=== PATIENT | female | born 1965 | race Caucasian/White ===

== ENCOUNTER 2020-11-19 21:55 | Emergency (ER) | payer OTHER, SELFPAY ==
[2020-11-19 21:56] VITALS: BP 169/85; PULSE 102; RESP 18; TEMP 37.7; O2SAT 96; BMI 33.6
--- NOTE | 2020-11-19 22:24 | EDS_ITS ---
HPI History of Present Illness Chief Complaint: General Illness Informant: patient Narrative Narrative: Patient is a 55-year-old female with history of hypertension presenting with cough, fever, myalgias and concern for Covid. Patient states that she started having symptoms on Saturday, 5 days ago. She states her granddaughter test positive for Covid and she been around her. She notes she was started to feel better but then had recurrent fevers and is continued to have a cough. She denies any chest pain. She uses her 's albuterol nebulizer which does seem to help. She is complaining of low back pain as well as diffuse back pain. She states she has a hard time laying down or sleeping because she so uncomfortable. She has not had a Covid vaccine. She has had some associated nausea. She denies any urinary symptoms. Her fevers been as high as 101.5. She did take an antipyretic before coming into the emergency room. [facility] Medical History (Updated 11/19/20 @ 23:[address] Libra Acosta DO) HTN (hypertension) Home Medications albuterol sulfate [Ventolin HFA] 1 - 2 puff INHALATION Q4H PRN PRN #1 inh [Rx Last Taken Unknown] amlodipine 10 mg PO DAILY 11/19/20 [History Last Taken Unknown] Allergy/AdvReac Type Severity Reaction Status Date / Time prochlorperazine Allergy Other Verified 11/19/20 21:58 [From Compazine] Surgical History (Updated 11/19/20 @ 22:46 by Radha Louie) H/O: hysterectomy Social History Smoking Status: Never smoker [facility] ED Constitutional Constitutional ED: Reports chills and fever(s) Eyes Eyes: Reports change in vision ENT ENT ED: Denies rhinorrhea or sore throat Cardiovascular Cardiovascular: Denies chest pain or palpitations Respiratory/Chest Respiratory/Chest: Reports cough and dyspnea; Denies dyspnea on exertion or sputum Gastrointestinal Gastrointestinal: Reports nausea; Denies abdominal pain, diarrhea or vomiting Genitourinary Genitourinary ED: Denies dysuria or hematuria Musculoskeletal Musculoskeletal: Reports back pain, myalgias and neck pain Integumentary Denies rash Neurologic Neurologic: Denies headache(s) or weakness Psychiatric Psychiatric: Denies depression EXAM Physical Exam Const Vital Signs: 11/19/20 21:56 11/19/20 22:46 Temperature 99.8 F H Temperature Source Temporal Pulse Rate 102 H Respiratory Rate 18 Respiratory Effort Normal Non-Labored Respiratory Pattern Normal Blood Pressure 169/85 H Blood Pressure Mean 113 Pulse Ox 96 Oxygen Delivery Method Room Air Positive well nourished, well developed and obese General Appearance ED: well developed Nutritional Appearance: obese HEENT Reports moist mucous membranes Negative for tenderness Eyes PERRL and EOMs intact bilaterally Neck no lymphadenopathy, supple and no meningeal signs Resp normal respiratory effort and clear to auscultation bilaterally Resp Narrative: Mild bronchial breath sounds, no crackles or wheezing appreciated. Auscultation: Negative for wheezes or diminished lung sounds Cardio regular rate, regular rhythm and no murmurs GI normal to inspection, nondistended, normoactive bowel sounds and non-tender Palpation: soft Back/Spine no CVA tenderness Cervical Spine: Negative for cervical spine tenderness Thoracic Spine / Upper Back: Negative for thoracic spinal tenderness Lumbar Spine / Lower Back: Negative for lumbar spinal tenderness Extremity normal to inspection General Extremety ED: Negative for edema or tenderness General Extremity: Negative for edema Neuro oriented x3 and CN's II-XII intact bilaterally Sensorium / Orientation: alert Psych mental status grossly normal Skin no rashes or lesions noted and no wounds MDM MDM MDM Narrative Medical decision making narrative: Patient evaluated for Covid-like symptoms for the past week. She is mildly tachycardic with a low-grade temperature. She is hypertensive but notes that she did not take her blood pressure medication today. She is otherwise well-appearing. She is having some mild urinary symptoms I did check a urinalysis. She is not having ketones or findings consistent with acute infection. Covid test is positive. Due to patient's BMI and history of hypertension she is a candidate for monoclonal antibody treatment. She is c ounseled on this and given outpatient follow-up and encouragement to get the infusion. She is counseled return precautions. She verbalizes agreement and understanding with this plan. Lab Data Attestation: I reviewed the patient's lab results. Labs: Laboratory Results - last 24 hr 11/19/20 22:59 Urine Color Yellow Urine Clarity Sl. Cloudy Urine pH 7.0 Ur Specific [place] 1.010 Urine Protein 15 H Urine Glucose (UA) Normal Urine Ketones Negative Urine Occult Blood Negative Urine Nitrite Negative Urine Bilirubin Negative Urine Urobilinogen Normal Ur Leukocyte Esterase Negative Urine RBC 0 SEEN Urine WBC 0-5 SEEN Ur Squamous Epith Cells 0-5 SEEN Amorphous Sediment 1+ PHOS Urine Bacteria RARE Urine Mucus 0 SEEN Radiography Chest X-Ray - ED: 1 View, Read by ED Physician, Read by Radiologist and No Acute Disease Diagnostic Testing: Radiology Impression Chest X-Ray 11/19/20 22:50 IMPRESSION: No radiographic evidence of acute cardiopulmonary disease. at 2320 Reported and signed by: Nicholas Dunn MD Electronically Signed: Nicholas Dunn MD at 23:19 EDT Tel , Service support , Discharge Plan Triage Chief Complaint: General Illness ED Provider: Libra Acosta Dx/Rx/DC Orders Clinical Impression: COVID-19 Instructions: Coronavirus Disease 2019 (COVID-19): Caring for Yourself or Others Prescriptions: New albuterol sulfate [Ventolin HFA] 90 mcg/actuation HFA aerosol inhaler 1 - 2 puff inhalation Q4H PRN PRN (Reason: Wheezing) Qty: 1 RF: 0 No Action amlodipine 10 mg Tablet 10 mg PO DAILY RF: 0 Other Ambulatory Orders: COVID Outpatient Monoclonal Antibody Referral (Routine) Location: None Selected Ordered By: Dr. Libra Acosta Referrals: JARROD RODRIGUEZ [Other] Robert Snyder MD [STAFF PHYSICIAN] - Disposition Disposition: Home, Self Care Discharge Date/Time: 11/19/20 23:42
--- NOTE | 2020-11-19 22:50 | RAD_ITS ---
HISTORY: sob, cough EXAMINATION/TECHNIQUE: XR Chest 1 View portable AP view COMPARISON: None FINDINGS: LINES/DEVICES: None. LUNGS: No pulmonary edema. No focal airspace consolidation. No sizable pleural effusion. No pneumothorax detected. Mildly elevated right hemidiaphragm. MEDIASTINUM AND CARDIOVASCULAR STRUCTURES: Heart size within normal limits for imaging technique. Central airways and mediastinal contour are unremarkable. BONES AND SOFT TISSUES: No acute findings. Cholecystectomy clips noted. RAD/Chest 1 View (Portable) IMPRESSION: No radiographic evidence of acute cardiopulmonary disease. at 2320 Reported and signed by: Nicholas Dunn MD Electronically Signed: Nicholas Dunn MD at 23:19 EDT Tel , Service support ,
[2020-11-19 23:01] LABS: Mucous, Urine 0 SEEN /hpf (<or=2+); Red Blood Cells-Urine 0 SEEN /hpf (0-5)
[2020-11-19 23:05] LABS: Color, Urine Yellow (Yellow); Glucose, Dipstick Normal (Normal); Ketone-Dipstick Negative (Negative); Leukocyte Esterase-Dipstick Negative /ul (Negative); Nitrite-Dipstick Negative (Negative); Occult Blood-Urine Negative /ul (Negative); Protein-Dipstick 15 mg/dl (Negative); Urine Bilirubin Dipstick Negative (Negative); Urine Clarity Sl. Cloudy (Clear); Urine Urobilinogen Normal (Normal)
[2020-11-19 23:12] LABS: Amorphous Sediment 1+ PHOS; Bacteria RARE /hpf (None Seen); Squamous Epithelial Cells - UA 0-5 SEEN /hpf (5-10); White Blood Cells 0-5 SEEN /hpf (0-5)
== END 2020-11-19 23:42 | disposition home or self-care (01) ==
PROVIDERS: Emergency Provider Emergency Medicine
DX: U07.1 COVID-19 (principal); I10 Essential (primary) hypertension; E66.9 Obesity, unspecified; Z79.899 Other long term (current) drug therapy
CPT/HCPCS: 71045; 81001; 87426; 99282